=== PATIENT | female | born 1985 | race Caucasian/White ===

== ENCOUNTER → 2021-04-10 11:24 | Outpatient (CLI) | payer OTHER, SELFPAY ==
[2021-04-10 12:09] LABS: COVID19 -Nasal RAPID Negative (Negative)
== END ==
PROVIDERS: PCP Family Medicine; Referring Provider Specialist; Visit Provider Specialist
DX: Z01.812 Encounter for preprocedural laboratory examination (principal); Z20.822 Contact with and (suspected) exposure to COVID-19
CPT/HCPCS: 87635

== ENCOUNTER 2021-04-10 12:31 | Day surgery (SDC) | payer OTHER, SELFPAY ==
[2021-04-06 12:32] VITALS: BMI 55.5
[2021-04-10] VITALS (16 sets, daily range): BP systolic 100–153; BP diastolic 59–87; PULSE 73–103; RESP 15–19; TEMP 36.2–36.9; O2SAT 93–99; BMI 55.5
--- NOTE | 2021-04-10 | PATH_ITS ---
[facility] Accession Number: [id number] . 01 Material submitted: . uterus - UTERUS AND BILATERAL FALLOPIAN TUBES . 01 Clinical history: . LAVH W/RAMIRO SALPINGECTOMIES *OPB* . 02 Diagnosis: A. Uterus and Bilateral Fallopian Tubes, Hysterectomy and Bilateral Salpingectomy: Myometrium with adenomyosis. Late secretory phase endometrium with breakdown. Cervix with focal mild atypia favor reactive, in a background of focal ulceration, extensive inflammation, squamous metaplasia, and benign Nabothian cyst; see comment. Negative for definite dysplasia or malignancy. Bilateral fallopian tubes within normal limits. . Comment: Within the cervix adjacent to an area of ulceration and extensive inflammation, mild atypia is present. This atypia is favored to represent reactive changes; however, clinical correlation with Pap/HPV molecular status is recommended. [facility] 04/16/2021 [facility]3 Local . 02 Electronically signed: . Niru Gusman MD, Pathologist NPI- [id number] . 01 Gross description: . The specimen is received in formalin, labeled uterus and bilateral fallopian tubes and consists of a 119-gram fragmented uterus, detached cervix, and bilateral fallopian tubes. The specimen measures 9.0 x 7.0 x 5.0 cm. The serosa is moyer-pink and smooth to ragged. The detached moyer-pink hemorrhagic ectocervix measures 3.5 x 3.0 cm and there is a 0.2 x 0.2 cm os. Sectioning reveals a moyer-pink herringbone endocervical mucosa with multiple mucoid cysts ranging from 0.2-1.0 cm. The endometrium is moyer-pink and measures 0.3 cm in thickness. The myometrium is moyer-pink and trabeculated, measuring 2.0 cm in thickness. The fallopian tubes measure 3.0 cm in length by 0.7 cm in diameter and 5.5 cm in length by 1.0 cm in diameter. The serosa is pink-purple with fibrinous adhesions and 0.1 cm paratubal cysts. Sectioning reveals a moyer-pink mucosa and a stellate lumen measuring 0.3 cm in diameter. Behavioral Therapist sections are submitted. . A1-A2: Cervix. A3-A6: Behavioral Therapist uterus. A7-A8: Fallopian tubes, medical service representative central cross sections and bisected fimbria. ([id number]) /MRV 04/11/2021 1100 Local . 02 Pathologist provided ICD-10: N92.0, N94.6 . 02 CPT . 422347 Performed at: 01 [facility] [address] [id number] MD Cas Villalobos MD Phone: [phone] Performed at: 02 [facility] [address] [place], [place] [id number] MD Darline Caruso MD Phone: [phone]
[2021-04-10] MEDS: LACTATED RINGERS 1,000 ML 100 ML IV ×3 (13:18→17:48)
--- NOTE | 2021-04-10 13:23 | PM.PREOP ---
Pre-operative Note COVID-19 COVID-19 status: Negative Result date/Date tested (Pos, Neg/Pending): 04/10/21 Interval Note History & Physical reviewed/Exam performed by Physician: Yes Changes to H&P: No
[2021-04-10] MEDS: CEFAZOLIN 1 GM VIAL 2 GM IV (13:50)
[2021-04-10] MEDS: BUPIVACAINE 0.5% (PF) 30 ML, EPINEPHrine 0.15 MG INJ (14:30)
--- NOTE | 2021-04-10 14:32 | SUR.OPER ---
Lithotomy on padded OR bed. Yetter Pad Positioner under torso. Head on pillow, left arm padded and tucked at side, right arm secured to padded armboard less than 90 degrees. Legs secured in padded yellow fins stirrups.
--- NOTE | 2021-04-10 16:06 | SUR.OPER ---
Patient eyeglasses kept with WIRE ROPE SLING MAKER and taken to PACU with patient at end of procedure.
--- NOTE | 2021-04-10 16:24 | PM.OP.1 ---
Operative Date/Time/Diagnoses Date of procedure: 04/10/21 Time of procedure: 16:24 Post-op diagnosis: same Procedure & Clinicians Procedure: laparoscopic-assisted vaginal hysterectomy with bilateral salpingectomies, extensive lysis of adhesions and cystoscopy Same procedure as scheduled: No ( cystoscopy performed due to severe adhesions around the bladder ) Surgeon: Tequila Lyon Trombone Slide Assembler: Dutch Corcoran Click Yes if Unassisted: No Anesthesia Type: General Operative Notes Findings: Adhesions of the omentum to the anterior abdominal wall, uterus, and bladder. Normal appearing uterus. Normal appearing ovaries. Adhesions involving the fallopian tubes, left greater than right. No endometriosis. No internal hernias. Normal appearing liver edge. On cystoscopy there was no damage to the bladder. Ureters were both seen to be functional. Closure Type: primary Specimen(s): other ( uterus and fallopian tubes) Applied: catheter ( Miranda) Estimated Blood Loss (mL): 60 Blood products transfused: none Procedure in detail: Patient was brought to the operating room where she underwent general anesthesia. She was placed in [facility] stirrups. A check system was reviewed. 2 gram Ancef were in prior to beginning case. Warming was in place. Pulsatile stockings were in place and functional. She was prepped and draped in the usual sterile fashion. A single-tooth tenaculum was placed on the anterior lip of the cervix. The cervix was dilated to #6 Hegar dilator to allow the uterine manipulator to be placed through the cervix into the uterus with the balloon inflated with 3 mL of air. A Miranda catheter was placed. Area of the umbilical incision was injected with lidocaine. An incision was made with the scalpel. The varies needle was placed in the abdomen. The abdomen was insufflated with CO2. 5 mm trochars were placed in the right and left lower quadrant under direct visualization. There did not appear to be any damage with placement of the trochars. The PK generator was used to cauterize and cutThe adhesion of the omentum to the anterior abdominal wall, Uterus and bladder flap. Sequential bites were taken down the mesosalpinx and across the utero-ovarian ligament freeing the ovaries bilaterally. sequential bites taken down the broad ligament and adhesions at the bladder flap were lysed. Next the procedure was switched to a vaginal approach. A single-tooth tenaculum was placed on the posterior lip of the cervix and a posterior colpotomy incision was made. The uterosacral ligaments were clamped, cut, and ligated with 0 Vicryl suture which was used throughout the rest the case unless otherwise indicated. The cervix was circumscribed with the scalpel. The bladder pillars were clamped cut and ligated. Using sharp and blunt dissection the bladder was pushed away from the cervix. Sequential bites were taken up the cardinal and broad ligaments with the LigaSure. The uterus was morselized to allow easier access to the anterior pedicles. An anterior colpotomy incision was made and the bladder held away from the uterus. The final bites of the broad ligaments were cauterized and cut. The uterus and tubes were removed vaginally. Adequate hemostasis noted. The vaginal cuff was closed from anterior to posterior with [id number] sutures. The abdomen was reinsufflated and adequate hemostasis was noted. The CO2 was allowed to escape from the abdomen and the trochars were removed. The skin was closed with 4-0 Monocryl. Counts of instruments and sponges were correct. Patient went to recovery room in good condition. Complications: none Post-operative Condition: stable Disposition: Acute Care Plan for aftercare: Patient will be monitored for postoperative pain control and nausea. She will be discharged when ambulatory and tolerating regular diet.
[2021-04-10] MEDS: HYDROMORPHONE 2 MG INJ IV ×4 (16:26→16:46)
[2021-04-10] MEDS: fentaNYL 100 MCG/2 ML INJ IV ×2 (16:31→16:38)
[2021-04-10] MEDS: OXYCODONE/ACETAMINOPHEN 5/325 TABLET 1 TAB PO (16:54)
--- NOTE | 2021-04-10 17:37 | SUR.PHASEI ---
1620 Received from OR in alot of pain. Given over 20 min 2 of dilaudid and 100 of fentanyl and a 5/325 Percocet. Pain level from 10 to 3. Brought to acute care with pain level of 2-3
[2021-04-10] MEDS: MORPHINE 2 MG/ML INJ IV (18:23)
[2021-04-10] MEDS: DOCUSATE 100 MG CAPSULE 200 MG PO (20:55)
[2021-04-10] MEDS: BUSPIRONE 5 MG TABLET 30 MG PO (20:55)
[2021-04-10] MEDS: SERTRALINE 50 MG TABLET 100 MG PO (20:55)
[2021-04-10] MEDS: OXYCODONE IR 5 MG TABLET PO (20:56)
[2021-04-11 00:05] VITALS: BP 127/74; PULSE 91; RESP 16; TEMP 36.3; O2SAT 95
[2021-04-11] MEDS: OXYCODONE IR 5 MG TABLET PO ×3 (01:05→09:56)
[2021-04-11 04:00] VITALS: BP 129/66; PULSE 78; RESP 18; TEMP 36.5; O2SAT 100
[2021-04-11] MEDS: LACTATED RINGERS 1,000 ML 100 ML IV (04:20)
[2021-04-11 05:26] LABS: Add Manual Diff / Slide Review NO; Basophils Absolute Auto 0 /uL (0-100); Basophils Percent Auto 0.3 % (0-2); Eosinophils Absolute Auto 0 /uL (0-450); Hematocrit 39.4 % (36-46); Hemoglobin 13.1 g/dL (12.0-16.0); Lymphocytes Absolute Auto 1000 /uL (1100-4500); Lymphocytes Percent Auto 8.7 % (25-40); Mean Corpuscular HGB Conc 33.3 % (30-36); Mean Corpuscular Hemoglobin 28.2 PG (26-34); Mean Corpuscular Volume 84.7 fL (80-100); Monocytes Absolute Auto 800 /uL (0-900); Monocytes Percent Auto 6.6 % (3-14); Neutrophils Absolute Auto 10100 /uL (1500-7000); Neutrophils Percent Auto 84.4 % (50-75); Platelet Count 329 X10^3/uL (150-400); Red Blood Cell Count 4.66 X10^6/uL (4.0-5.2); White Blood Cell Count 11.9 X10^3/uL (4.5-11.0)
--- NOTE | 2021-04-11 08:07 | PM.DS.1 ---
History of Present Illness History of Present Illness Date Patient Seen: 04/11/21 Time Patient Seen: 08:08 Chief complaint: LAVH W/RAMIRO SALPINGECTOMIES *OPB* Narrative: Patient underwent a laparoscopic-assisted vaginal hysterectomy with bilateral salpingectomies on 04/10/2021 for pelvic pain, menorrhagia, dysmenorrhea Discharge Providers Provider Discharge Date: 04/11/21 Primary care physician: Otto Collazo MD Discharge provider: Tequila Lyon MD Summary Hospital Course Discharge Diagnosis: Pelvic pain with extensive pelvic adhesions, no endometriosis, normal appearing ovaries Hospital Course: Patient underwent a laparoscopic-assisted vaginal hysterectomy with bilateral salpingectomies and extensive lysis of adhesions on 04/10/2021. She denies nausea. Her pain is improving. She will be discharged after her Miranda catheter is removed and she is able to document easy ambulation. Status at Discharge Cognitive/behavioral status at discharge: oriented Functional status at discharge: independent ambulation Overall status at discharge: patient is progressing back to baseline Time Spent with Patient Time spent: Less than 30 minutes Exam Vital Signs (past 8 hours): - 04/11/21 04:00 Temperature 97.7 F Pulse Rate 78 Respiratory Rate 18 Blood Pressure 129/66 Pulse Oximetry 100 Oxygen Delivery Method Room Air Oxygen Flow Rate 0 Narrative Exam Narrative: Abdomen is soft, minimally tender. Dressings are clean, dry, intact. Minimal vaginal bleeding. Extremities without edema and nontender. Objective Labs Result Diagrams: 04/11/21 04:55 Labs: Laboratory Results - last 24 hr 04/11/21 04:55 WBC 11.9 H RBC 4.66 Hgb 13.1 Hct 39.4 MCV 84.7 MCH 28.2 MCHC 33.3 RDW 14.0 Plt Count 329 Neut % (Auto) 84.4 H Lymph % (Auto) 8.7 L Jessamine % (Auto) 6.6 Eos % (Auto) 0.0 L Baso % (Auto) 0.3 Neut # (Auto) 39516 H Lymph # (Auto) 1000 L Jessamine # (Auto) 800 Eos # (Auto) 0 Baso # (Auto) 0 PFSH Surgical History (Updated 04/10/21 @ 16:21 by Tequila Lyon MD) History of 2 sections Social History household members: spouse and children Smoking Status: Never smoker alcohol intake: never Discharge Assessment & Plan Assessment and Plan Assessment: Postoperative laparoscopic-assisted vaginal hysterectomy bilateral salpingectomy doing well. Plan of Treatment: Discharge home to be followed up in 2 weeks Discharge Plan Discharge Plan Patient Disposition: Home Discharge orders & Medications Discharge Orders: Discharge (Order); Ordered 04/11/21 Ordered By: Tequila Lyon Prescriptions: Continued buspirone 30 mg tablet 30 mg PO BID RF: 0 oxycodone 5 mg tablet 5 mg PO Q4H PRN (Reason: pain) Qty: 30 RF: 0 sertraline 100 mg tablet 100 mg PO DAILY RF: 0 diazepam [Valium] 5 mg Tablet 5 mg PO BID PRN (Reason: Anxiety) RF: 0 Follow up/Referrals: Tequila Lyon MD [Physician] - As previously scheduled Otto Collazo MD [Primary Care Provider] - Diet/Activity/Treatments Diet: Regular Activity: Nothing in vagina for 6 weeks Skin/Wound/Dressing Care Report to your healthcare provider any signs of infection, such as:: chills, fever, increased pain and unusual redness Visit Report/Discharge Packet Instructions: DI for Hysterectomy, DI for Laparoscopy Discharge Data Primary Care Provider: Otto Collazo Attending Provider: Tequila Lyon
[2021-04-11 09:23] VITALS: BP 153/80; PULSE 82; RESP 16; TEMP 36.6; O2SAT 98
[2021-04-11 09:28] VITALS: O2SAT 100
[2021-04-11] MEDS: BUSPIRONE 5 MG TABLET 30 MG PO (09:57)
[2021-04-11] MEDS: DOCUSATE 100 MG CAPSULE 200 MG PO (09:57)
--- NOTE | 2021-04-11 10:06 | PC.NURSE ---
Addendum entered by Анна Harris R.N. 04/11/21 10:50: pt changed into personal clothing. DC education provided, no questions remained. PIV removed without concern. Transferred pt in wheelchair to personal vehicle. Original Note: AM Shift note. pt AO and receptive to care. Miranda removed around 0900 without concerns with 425ml of urine in bag. Pad changed and pt ambulated in room. IND with ADL's using walker at first then IND. Reporting mild bloating and gas discomfort which improves with ambulation. VOID 150ml (pink and yellow) around 0950 with mild burning sensation. pt dressings and ready for DC. Administered 5mg Oxycodone for 10 pain at 0950.
--- NOTE | 2021-04-11 10:24 | CM.DANOTE ---
DCP Brief Assessment Patient is a 36 yo female who was admitted on 04/10/21 for Vaginal Hysterectomy. Pt has PRE PREFERRED for insurance and her PCP is Otto Collazo. EMR was reviewed. Per OBGYN, pt tolerated procedure well and stable for d/c later today if she can ambulate and void independently. Per RN, galindo discontinued and pt has ambulated with steady gait and awaiting independent void and no concerns at this time. Plan: SW to follow for plan of d/c home via spouse POV later today if no urinary retention concerns. No further SW needs at this time. Pt active and independent at baseline. URIAH Hayward
== END 2021-04-11 10:51 | disposition home or self-care (01) ==
LOC: OR 12:32 → AC 12:34
PROVIDERS: PCP Family Medicine; Referring Provider Specialist; Visit Provider Specialist
PROC: 0UT9FZZ Resection of Uterus, Via Natural or Artificial Opening With Percutaneous Endoscopic Assistance (ICD-10-PCS; CPT 58552; principal; 2021-04-10 13:30)
DX: Z20.822 Contact with and (suspected) exposure to COVID-19 (principal); N92.0 Excessive and frequent menstruation with regular cycle; N94.6 Dysmenorrhea, unspecified; N73.6 Female pelvic peritoneal adhesions (postinfective); E66.9 Obesity, unspecified; Z68.43 Body mass index [BMI] 50.0-59.9, adult; N80.0 Endometriosis of uterus; N88.8 Other specified noninflammatory disorders of cervix uteri
CPT/HCPCS: 58552; 36415; 85025; 87635; 94760; J0171; J0330; J0690; J1100; J1170; J2270; J2405; J3010